=== PATIENT | male | born 1990 | race Caucasian/White ===

== ENCOUNTER → 2021-10-29 02:33 | Outpatient (CLI) | payer OTHER, SELFPAY ==
[2021-10-29 19:07] LABS: SARS-CoV-2 RNA PCR Positive
== END ==
PROVIDERS: PCP Family Medicine; Visit Provider Family Medicine
DX: U07.1 COVID-19 (principal)
CPT/HCPCS: C9803; U0003; U0005

== ENCOUNTER → 2022-06-06 10:12 | Outpatient (CLI) | payer SELFPAY ==
--- NOTE | ~2022-06-06 | XR_ITS ---
XR cervical spine min 6V DATE: 06/06/2022 10:47 INDICATION: Neck pain TECHNIQUE: AP, open-mouth, lateral, swimmer views. Bilateral oblique views. COMPARISON: None FINDINGS: There is straightening of the cervical spine which may be due to muscle spasm. There is mil d levoscoliosis of the cervical and upper thoracic spine. C1 and C2 are normally aligned and the odontoid process is intact. No fracture or dislocation or lock ed facet or prevertebral soft tissue swelling. Cervical interspaces are preserved. IMPRESSION: Straightening and mild levoscoliosis Reviewed, dictated and finalized at location B.
== END ==
PROVIDERS: PCP Family Medicine; Visit Provider Family Medicine
DX: M54.2 Cervicalgia (principal)
CPT/HCPCS: 72052

== ENCOUNTER 2024-01-30 10:06 | Emergency (ER) | payer OTHER, SELFPAY ==
--- NOTE | 2024-01-30 10:13 | ED.URI ---
HPI - URI/Sore Throat General Chief Complaint: Upper Respiratory Infection Stated Complaint: Congestion,Body Aches,Headache Time Seen by Provider: 01/30/24 10:14 Source: patient, RN notes reviewed and old records reviewed Mode of arrival: ambulatory Limitations: no limitations History of Present Illness HPI Narrative: 33-year-old male presents to the [facility] with complaints of sinus congestion, postnasal drainage, body aches and generalized headache since night, a day and half. Had trying saline spray but no other treatment prior to arrival. Denies fevers. Reports a negative COVID test at. Onset (ago): day(s) (1.5) Treatments prior to arrival: other (Saline nasal spray) Related Data Home Medications Medication Instructions Recorded Confirmed sertraline 100 mg tablet 100 mg PO DAILY 11/24/23 01/30/24 Allergies Allergy/AdvReac Type Severity Reaction Status Date / Time No Known Allergies Allergy Mild Verified 01/30/24 10:15 Review of Systems Review of Systems: All systems reviewed & are unremarkable except as noted in HPI and below Constitutional: Constitutional: Reports as per HPI and Reports body ache(s) Eyes: Eyes: Reports no additional eye complaints ENT: Reports as per HPI, Reports nasal congestion, Reports nasal discharge and Reports post nasal drip Cardiovascular: Cardiovascular: Reports no additional cardiovascular complaints, Denies chest pain and Denies dyspnea Respiratory: Respiratory: Reports no additional respiratory complaints, Denies chest congestion, Denies cough and Denies dyspnea Gastrointestinal: Gastrointestinal: Reports no additional gastrointestinal complaints, Denies abdominal pain, Denies nausea and Denies vomiting Musculoskeletal: Musculoskeletal: Reports no additional musculoskeletal complaints Integumentary/Breasts: Skin/Breast: Reports system reviewed and no additional complaints, except as docu Neurologic: Reports system reviewed and no additional complaints, except as documented Psychiatric: Psychiatric: Reports no additional psychiatric complaints Allergic/Immunologic: Allergic/Immunologic: Reports no additional allergic/immunologic complaints [facility] Past Medical History Medical History Depression Family History Family History Father Diabetes mellitus Mother Depression Social History Social History Smoking status: Never smoker Alcohol intake: never Substance use: never Substance use type: does not use Do You Feel Safe in your Home?: Yes Lack of Transportation: No Lack of Food: Never True Current Housing: I Have Housing Concerned About Future Housing: No Difficulty Paying Gas/Electric Bills: No Difficulty Paying for Meds: No Currently Unemployed: No Education: Trade/Vocational Certificate Difficulty w/ Childcare or Family Care: No Living arrangements: with family Occupation/Education: occupation Gender identity (if verbalized by the patient): Male Sexual Orientation (if Verbalized by the Patient): Straight or Heterosexual Comments At the time of my signature, I reviewed and agree with the nursing past medical, surgical, social, and family history. There is no relevant family history pertinent to the patient complaint. Exam Const: General: cooperative, healthy appearing, comfortable, no acute distress, well developed, alert and well nourished Nutritional Appearance: well nourished Orientation/consciousness: patient oriented x3 Limitations: no limitations HENMT: Head: normal to inspection Ears: hearing grossly normal bilaterally, external ears normal, TM's normal bilaterally, EAC's normal, mastoids normal and no periauricular adenopathy Face/Nose/Sinus: Normal external nose present, Normal nares present, Normal nasal mucous membranes and turbinates present
[2024-01-30 10:14] VITALS: BP 125/76; PULSE 96; RESP 18; TEMP 36.8; O2SAT 99
[2024-01-30 10:16] VITALS: BP 125/76; PULSE 96; RESP 18; TEMP 36.8; O2SAT 99
== END 2024-01-30 10:30 | disposition home or self-care (01) ==
PROVIDERS: Emergency Provider Nurse Practitioner; PCP Family Medicine
DX: J06.9 Acute upper respiratory infection, unspecified (principal); R09.82 Postnasal drip; F32.A Depression, unspecified
CPT/HCPCS: 99211; G0463

== ENCOUNTER 2024-02-18 10:26 | Outpatient (CLI) | payer OTHER, SELFPAY ==
--- NOTE | ~2024-02-18 | CT_ITS ---
EXAMINATION: CT sinus wo con DATE: 02/18/2024 10:45 INDICATION: Acute recurrent maxillary sinusitis. Left ear pain. TECHNIQUE: Computed tomography (CT) of the paranasal sinuses was performed without contrast. Iterativ e reconstruction technique was employed. Exam dose: 417.98 mGy-cm total exam DLP. COMPARISON: None FINDINGS: Leftward deviation of the nasal septum. There is asymmetric soft tissue swelling of the right nasal turbinates. Bilateral josé manuel bullosa of t he middle nasal turbinates, much more prominent on the right. Bilateral Zainab cells. The ostiomeatal units are patent. Approximately 1.6 x 2.2 cm polypoid soft tissue opacity of the lower medial aspect of the right maxil amanda sinus. Huge polypoid soft tissue opacity in the left maxillary sinus measures up to 4.5 cm vertical and 3.7 cm transverse dimension, occupying the great majority of the left maxillary antrum. Moderate mucoperiosteal thickening of both sphenoid sinuses. The ostiomeatal units are patent. Extensive patchy effusions of mastoid air cells. The right mastoid air cells are well aerated. IMPRESSION: Polypoid masses of the maxillary antra, particularly huge on the left Moderate mucoperiosteal thickening of both sphenoid sinuses Prominent patchy effusions of the left mastoid air cells José Manuel bullosa of the middle nasal turbinates, more prominent on the right Reviewed, dictated and finalized at Location A. Reviewed, dictated and finalized at location B. IMPRESSION: Polypoid masses of the maxillary antra, particularly huge on the l eft Moderate mucoperiosteal thickening of both sphenoid sinuses Prominent patchy effusions of the left mastoid air cells José Manuel bullosa of the middle nasal turbinates, more prominent on the right
== END 2024-02-18 10:27 ==
PROVIDERS: PCP Family Medicine; Visit Provider Otolaryngology
DX: H65.492 Other chronic nonsuppurative otitis media, left ear (principal); J01.01 Acute recurrent maxillary sinusitis; R05.9 Cough, unspecified; R93.0 Abnormal findings on diagnostic imaging of skull and head, not elsewhere classified
CPT/HCPCS: 70486

== ENCOUNTER 2024-04-22 18:36 | Emergency (ER) | payer OTHER, SELFPAY ==
--- NOTE | ~2024-04-22 | XR_ITS ---
XR hand LT min 3V Ordering provider: DOLLY Garrison History: . injury today, swelling/pain in hand . Comparison: None. FINDINGS: BONES: Oblique fracture in the middle metacarpal bone. No other fractures seen. JOINT SPACES: Well maintained. SOFT TISSUES: Unremarkable. IMPRESSION: Oblique fracture in the medial metacarpal bone. Reviewed, dictated and finalized at location A.
[2024-04-22 18:43] VITALS: BP 128/83; PULSE 76; RESP 16; TEMP 36.8; O2SAT 100
--- NOTE | 2024-04-22 19:07 | ED.UPPEXIN ---
HPI - Extremity Injury (Upper) General Chief Complaint: Extremity Injury, Upper Stated Complaint: INJURED L HAND Time Seen by Provider: 04/22/24 18:58 Source: patient and RN notes reviewed Mode of arrival: ambulatory Limitations: no limitations History of Present Illness HPI narrative: Patient presents today complaining of an injury to the dorsum of his left hand. Approximately 30-40 minutes prior to arrival, patient was using an electric drill with a large bit on it to drill holes to plant flower bulbs. The bit hit something hard, flew out of his hand, and the drill struck the dorsum of his hand. Denies numbness or tingling. Pain radiates to the mid forearm. No [id number] treatment prior to arrival. Related Data Home Medications Medication Instructions Recorded Confirmed sertraline 100 mg tablet 100 mg PO DAILY 11/24/23 04/22/24 Allergies Allergy/AdvReac Type Severity Reaction Status Date / Time No Known Allergies Allergy Mild Verified 04/22/24 18:55 Review of Systems Review of Systems: CONSTITUTIONAL: Denies body aches, fever, chills, or sweats. EYES: Denies visual changes, redness, or discharge. ENT: Denies rhinorrhea, congestion, sore throat, or otalgia. CARDIOVASCULAR: Denies chest pain, palpitations, or edema. RESPIRATORY: Denies cough or dyspnea. GASTROINTESTINAL: Denies abdominal pain, nausea, vomiting, or diarrhea. GENITOURINARY: Denies dysuria or hematuria. SKIN: Denies rash, itching, or wounds. MUSCULOSKELETAL: Left hand injury NEUROLOGIC: Denies headache, numbness, tingling, or weakness. PSYCH: Denies depression or anxiety. [facility] Past Medical History Medical History Depression Family History Family History Father Diabetes mellitus Mother Depression Social History Social History Smoking status: Never smoker Alcohol intake: never Substance use: never Substance use type: does not use Do You Feel Safe in your Home?: Yes Lack of Transportation: No Lack of Food: Never True Current Housing: I Have Housing Concerned About Future Housing: No Difficulty Paying Gas/Electric Bills: No Difficulty Paying for Meds: No Currently Unemployed: No Education: Trade/Vocational Certificate Difficulty w/ Childcare or Family Care: No Living arrangements: with family Occupation/Education: occupation Gender identity (if verbalized by the patient): Male Sexual Orientation (if Verbalized by the Patient): Straight or Heterosexual Comments At time of signature, I have reviewed and agree with nursing past medical, surgical, social and family history unless otherwise noted. Please see nursing chart for further information. There is no relevant family history pertinent to the presenting complaint Exam Narrative: GENERAL: Well-appearing, well-nourished, and in no acute distress. HEAD: Normocephalic, atraumatic. EYES: EOMI. No redness or drainage. Conjunctivae normal. ENT: Mucous membranes pink and moist. NECK: Normal AROM. CHEST: No respiratory distress. EXTREMITIES: Left hand: Large localized swelling/hematoma overlying the 2-4th metacarpals. This area is tender to palpation as well. Distal sensation intact in all 5 fingers. Capillary refill normal. Radial pulse normal. Decreased range of motion of the fingers due to pain. Decreased range of motion of the wrist due to pain. No swelling of the wrist. SKIN: Warm, dry, no rash. Capillary refill normal. Normal skin turgor. NEURO: No focal deficits. Alert and oriented x3. Gait steady. PSYCH: Normal affect. No signs of depression or anxiety. Course Course Level of Care: Express Care Visit Vital Signs Vital signs: Vital Signs Temperature 98.2 F 04/22/24 18:43 Pulse Rate 76 04/22/24 18:43 Respiratory Rate 16
== END 2024-04-22 19:26 | disposition home or self-care (01) ==
PROVIDERS: Emergency Provider Nurse Practitioner; PCP Family Medicine
DX: S62.353A Nondisplaced fracture of shaft of third metacarpal bone, left hand, initial encounter for closed fracture (principal); W29.8XXA Contact with other powered hand tools and household machinery, initial encounter; F32.A Depression, unspecified
CPT/HCPCS: 29125; 73130; 99214; A4565; G0463

== ENCOUNTER 2024-05-10 11:06 | Outpatient (CLI) | payer OTHER, SELFPAY ==
--- NOTE | ~2024-05-10 | XR_ITS ---
XR hand LT min 3V Ordering provider: Abdirashid Zhang MD History: . left 3rd mc fx F/U take out of splint . Comparison: April 22, 2024 FINDINGS: BONES: Oblique fractures seen in the mid metacarpal bone with no change from previous examination. JOINT SPACES: Well maintained. SOFT TISSUES: Unremarkable. IMPRESSION: Oblique fracture in the mid metacarpal bone with no change from examination. Reviewed, dictated and finalized at location A.
== END 2024-05-10 11:07 | disposition home or self-care (01) ==
LOC: ANHIMG 11:06
PROVIDERS: PCP Family Medicine; Visit Provider Plastic Surgery
DX: S62.398D Other fracture of other metacarpal bone, subsequent encounter for fracture with routine healing (principal); X58.XXXD Exposure to other specified factors, subsequent encounter
CPT/HCPCS: 73130

== ENCOUNTER 2024-05-30 15:11 | Outpatient (CLI) | payer SELFPAY ==
--- NOTE | ~2024-05-30 | XR_ITS ---
EXAMINATION: XR hand LT min 3V DATE: 05/30/2024 15:50 INDICATION: Fracture of left third metacarpal. TECHNIQUE: 3 views of left hand were obtained. COMPARISON: Left hand radiographs 05/10/24 FINDINGS: There is an oblique fracture of diaphysis of third metacarpal. The distal fracture fragment demonstrates 3 mm ulnar displacement and 3 mm shortening. Early callus formation is noted. Joint spa erik are normal. IMPRESSION: 1. Healing oblique fracture of diaphysis of third metacarpal. Reviewed, dictated and finalized at location A.
== END 2024-05-30 15:12 | disposition home or self-care (01) ==
PROVIDERS: PCP Family Medicine; Visit Provider Plastic Surgery
DX: S62.303D Unspecified fracture of third metacarpal bone, left hand, subsequent encounter for fracture with routine healing (principal); X58.XXXD Exposure to other specified factors, subsequent encounter
CPT/HCPCS: 73130

== ENCOUNTER 2024-10-12 10:29 | Emergency (ER) | payer OTHER, SELFPAY ==
[2024-10-12 10:41] VITALS: BP 133/83; PULSE 117; RESP 16; TEMP 36.6; O2SAT 100
--- NOTE | 2024-10-12 10:42 | ED.URI ---
HPI - URI/Sore Throat General Chief Complaint: Upper Respiratory Infection Stated Complaint: COUGH S/P COVID Time Seen by Provider: 10/12/24 10:45 Source: patient and RN notes reviewed Mode of arrival: ambulatory Limitations: no limitations History of Present Illness HPI Narrative: 34-year-old male presents with concern for 3 week history of cough, body aches, head congestion, ears feeling full. Reports he tested positive for COVID 3 weeks ago. He took Paxil noted. Denies fever. Reports body aches MD elicited complaint: cough and nasal congestion Related Data Allergies Allergy/AdvReac Type Severity Reaction Status Date / Time No Known Allergies Allergy Mild Verified 10/12/24 10:39 Review of Systems Review of Systems: CONSTITUTIONAL: Reports malaise. Denies chills, sweats, or fever. EYES: Denies visual changes, redness, or discharge. ENT: Reports rhinorrhea, congestion, sinus pain, otalgia CARDIOVASCULAR: Denies chest pain, palpitations, or edema. RESPIRATORY: Reports cough. Denies dyspnea. GASTROINTESTINAL: Denies abdominal pain, nausea, vomiting, diarrhea SKIN: Denies rash or itching. MUSCULOSKELETAL: Reports myalgia. NEUROLOGIC: Denies headache. All systems reviewed & are unremarkable except as noted in HPI and below PMFSH Past Medical History Medical History Depression Family History Family History Father Diabetes mellitus Mother Depression Social History Social History Smoking status: Never smoker Alcohol intake: never Substance use: never Substance use type: does not use Do You Feel Safe in your Home?: Yes Lack of Transportation: No Lack of Food: Never True Current Housing: I Have Housing Concerned About Future Housing: No Difficulty Paying Gas/Electric Bills: No Difficulty Paying for Meds: No Currently Unemployed: No Education: Trade/Vocational Certificate Difficulty w/ Childcare or Family Care: No Living arrangements: with family Occupation/Education: occupation Gender identity (if verbalized by the patient): Male Sexual Orientation (if Verbalized by the Patient): Straight or Heterosexual Comments At time of signature, agree with nursing past medical, surgical, social and family history. There is no relevant family history pertinent to the presenting complaint Exam Narrative: GENERAL: Well-appearing, well-nourished, and in no acute distress. HEAD: Normocephalic EYES: PERRLA, conjunctivae clear ENT: Nares clear, turbinates edematous and erythematous. Mucous membranes moist. TM pearly rick with dull light reflex bilaterally; no tragal tenderness. Oropharynx not erythematous without lesions. Tonsils not enlarged and without exudate, no drooling, no hoarseness, no trismus, uvula midline. NECK: Supple. No lymphadenopathy CHEST: Clear to auscultation, breath sounds equal. No wheezing, rhonchi, rales, or stridor. No respiratory distress, speaks in full sentences. Persistent cough noted HEART: Regular rate and rhythm. No murmur heard. SKIN: Warm, dry, no rash. NEURO: Alert and oriented x3. PSYCH: Normal mood and affect Course Course Emergency Course: Patient is aware of diagnosis, understands and agrees to treatment plan. Anticipatory guidance given. Patient agrees to follow-up as directed and is aware of reasons to seek care at the emergency department. Portions of this record may have been created with voice recognition software Level of Care: Express Care Visit Vital Signs Vital signs: Reviewed. MDM - URI/Sore Throat MDM Narrative Medical decision making narrative: Differential diagnosis considered: Edmonds virus, strep pharyngitis, allergic rhinitis, upper respiratory tract infection, sinusitis, rhinosinusitis, nasopharyngitis. viral pharyngitis, otitis media, otitis externa, pneumonia, bronchitis, viral cough syndrome, viral syndrome, and influenza. Exam findings show no acute concerns or changes; patient is non-toxic appearing and is in no distress. Patient is appropriate for outpatient treatment and follow-up. Lab Data Attestation: I reviewed the patient's lab results. Critical Care Time Critical Care Time Critical Care Time: No Discharge Plan Discharge Clinical Impression: Sinobronchitis Patient Disposition: Home, Self-Care Condition: Stable Instructions: Sinusitis (ED), Acute Bronchitis (ED) Additional Instructions: Take medication as prescribed Recommend antihistamine such as Benadryl at night time and Zyrtec or Iav during the day Cough syrup may cause drowsiness; avoid driving or take it at night time. Also, recommend symptomatic treatment includes: rest, fluids, and increase humidity of the air at home. Recommend Acetaminophen as directed on the bottle to reduce fever, pain, headache. Avoid smoking/second-hand smoke. Please schedule a follow-up visit with your personal physician for further evaluation and treatment within 3-5days. If your symptoms persist, change or worsen significantly before you can contact your personal physician then please, without delay, go to the emergency department for further evaluation. Patient Language: Argentine Prescriptions: New promethazine-DM 6.25-15 mg/5 mL syrup 5 ml PO Q4-6H PRN (Reason: cough) Qty: 120 0RF prednisone 20 mg tablet 40 mg PO DAILY 5 Days Qty: 10 0RF doxycycline monohydrate 100 mg tablet 100 mg PO BID 7 Days Qty: 14 0RF Follow-up/Referrals: Ishan Christianson MD [Primary Care Provider] - Stand Alone Forms: Work/School Release IP Time of Disposition: 10:54
== END 2024-10-12 10:57 | disposition home or self-care (01) ==
PROVIDERS: Emergency Provider Nurse Practitioner; PCP Family Medicine
DX: J20.9 Acute bronchitis, unspecified (principal); F32.A Depression, unspecified
CPT/HCPCS: 99213; G0463

== ENCOUNTER 2025-09-26 18:49 | Emergency (ER) | payer OTHER, SELFPAY ==
[2025-09-26 19:09] VITALS: BP 131/86; PULSE 88; RESP 16; TEMP 36.8; O2SAT 100
[2025-09-26 20:03] LABS: EDCOVIDSCREEN Negative (Negative); EDINFLUASCREEN Negative (Negative); EDINFLUBSCREEN Negative (Negative)
--- NOTE | 2025-09-26 20:05 | ED_ITS ---
HPI - URI/Sore Throat General Chief Complaint: Upper Respiratory Infection Stated Complaint: SINUS CONGESTION/COUGH Time Seen by Provider: 09/26/25 19:57 Source: patient and RN notes reviewed Mode of arrival: ambulatory Limitations: no limitations History of Present Illness HPI Narrative: 35 year old male patient presents today complaining of productive cough, nasal congestion, headache, and bilateral ear pressure. Symptoms began today. Denies fever, shortness of breath. He has been taking NyQuil with some mild relief. Related Data Home Medications ?Medication ?Instructions ?Recorded ?Confirmed ?Last Taken ?Type atomoxetine 80 mg capsule mg PO 09/26/25 Unknown Hist ory Allergies Allergy/AdvReac Type Severity Reaction Status Date / Time No Known Allergies Allergy Mild Verified 09/26/25 19:07 PMFSH Past Medical History Medical History ADHD (attention deficit hyperactivity disorder) JEOVANY (generalized anxiety disorder) Major depressive disorder, recurrent, moderate Family History Family History Father Diabetes mellitus Mother Depression Social History Social History Smoking status: Never smoker Alcohol intake: never Substance use: never Substance use type: does not use Lack of Transportation: No Lack of Food: Never True Current Housing: I Have Housing Concerned About Future Housing: No Difficulty Paying Gas/Electric Bills: No Difficulty Paying for Meds: No Currently Unemployed: No Education: Trade/Vocational Certificate Difficulty w/ Childcare or Family Care: No Living arrangements: with family Occupation/Education: occupation Gender identity (if verbalized by the patient): Male Sexual Orientation (if Verbalized by the Patient): Straight or Heterosexual Comments At time of signature, I have reviewed and agree with nursing past medical, surgical, social and family history unless otherwise noted. Please see nursing chart for further information. There is no relevant family history pertinent to the presenting complaint Exam Narrative: GENERAL: Mildly ill-appearing, well-nourished, and in no acute distress. HEAD: Normocephalic, atraumatic. EYES: EOMI. No redness or drainage. Conjunctivae normal. ENT: Mucous membranes pink and moist. Nares congested with rhinorrhea. TMs normal bilaterally. Throat mildly erythematous posteriorly with clear postnasal drainage. Uvula midline. NECK: Normal AROM. Supple. No lymphadenopathy. CHEST: No respiratory distress. Clear to auscultation. HEART: Regular rate and rhythm. No murmur appreciated. EXTREMITIES: Normal range of motion. No edema. SKIN: Warm, dry, no rash. Capillary refill normal. Normal skin turgor. NEURO: No focal deficits. Alert and oriented x3. Gait steady. PSYCH: Normal affect. No signs of depression or anxiety. Course Course Level of Care: Express Care Visit Vital Signs Vital signs: Vital Signs Temperature 98.3 F 09/26/25 19:09 Pulse Rate 88 09/26/25 19:09 Respiratory Rate 16 09/26/25 19:09 Blood Pressure 131/86 09/26/25 19:09 Pulse Oximetry 100 09/26/25 19:09 Temperature 98.3 F 09/26/25 19:09 Pulse Rate 88 09/26/25 19:09 Respiratory Rate 16 09/26/25 19:09 Blood Pressure 131/86 09/26/25 19:09 Pulse Oximetry 100 09/26/25 19:09 Reviewed [facility] Narrative Medical decision making narrative: 35 year old male patient presents today complaining of productive cough, nasal congestion, headache, and bilateral ear pressure. Symptoms began today. Denies fever, shortness of breath. He has been taking NyQuil with some mild relief. Upon exam, patient has nasal congestion, rhinorrhea, and a mildly erythematous throat with postnasal drainage. Influenza and COVID negative. Symptoms likely viral in etiology. Discussed [id number] medication use and duration of illness. No prescription medications indicated at this time. Anticipatory guidance given. Patient agrees with plan. Vital signs stable Differential Diagnosis Differential Diagnosis: URI, influenza, COVID, AOM, sinusitis Lab Data [facility] Lab Attestation statement: I personally reviewed the patient's lab results. Labs: Lab Results 09/26/25 Range/Units 20:01 POC Influenza A Ag Negative (Negative) POC Influenza B Ag Negative (Negative) POC SARS CoV-2 Ag Negative (Negative) Critical Care Time Critical Care Time Critical Care Time: No Discharge Plan Discharge Clinical Impression: Upper respiratory infection Qualifiers: URI type: unspecified URI Qualified Code(s): J06.9 - Acute upper respiratory infection, unspecified Patient Disposition: Home Condition: Stable Instructions: Upper Respiratory Infection (DC) Additional Instructions: Your influenza and COVID-19 tests are negative today. Your Symptoms are likely due to a viral illness, which is not treated with antibiotics. Virus symptoms can last for up to 7-10days. Take Tylenol or IBD for pain or fever. Consider Flonase for your postnasal drainage, ear pressure, nasal congestion. Rest and stay hydrated. Follow up with your PCP in 7 days if symptoms are not improving. Go to the ER immediately if you develop shortness of breath, difficulty swallowing, or any other concerning symptoms. Patient Language: Kuwaiti Prescriptions: No Action atomoxetine 80 mg capsule PO atomoxetine 60 mg capsule 60 mg PO QAM Qty: 90 1RF atomoxetine 40 mg capsule 40 mg PO QPM Qty: 90 1RF Follow-up/Referrals: Ishan Christianson MD [Primary Care Provider, [facility]] Time of Disposition: 20:09
== END 2025-09-26 20:10 | disposition home or self-care (01) ==
PROVIDERS: Emergency Provider Nurse Practitioner; PCP Family Medicine
DX: J06.9 Acute upper respiratory infection, unspecified (principal); Z20.822 Contact with and (suspected) exposure to COVID-19; F90.9 Attention-deficit hyperactivity disorder, unspecified type
CPT/HCPCS: 87426; 87804; 99213; G0463